=== PATIENT | female | born 1975 | race Caucasian/White ===

== ENCOUNTER 2019-07-11 22:52 | Emergency (ER) | payer OTHER, SELFPAY ==
[2019-07-11 22:53] VITALS: BP 165/107; PULSE 102; RESP 18; TEMP 35.5; O2SAT 96; BMI 43.0
--- NOTE | 2019-07-11 23:30 | ED.DCSUM_ITS ---
History of Present Illness Chief Complaint: Foreign Body Informant: Patient Narrative: Stated that when she was eating tonight around 6:30 PM she was swallowing steak and feels like it got stuck. She is having a burning sensation when she tries to swallow water. She had vomited up water. She is never had anything fully get stuck over the last 3 months though she is had difficulty eating steak and bread and meats. She is never had endoscopy. She felt fine before she was eating. Current severity is moderate. She is able to swallow her saliva. He is on no proton pump inhibitor Past Medical History - Allergies and Home Meds Allergies/Adverse Reactions: Allergies No Known Allergies Allergy (Verified 07/11/19 22:53) Primary Care Physician: Davey Lozano MD [Primary Care Provider] - Prior records reviewed: Yes Past Medical History: None Surgical History: noncontributory Lives: With Family Smoking Status: Never smoker Alcohol: None Drugs: None Review of Systems General: Denies: Chills, Fever, Sweats Eyes: Denies: Visual changes - bilaterally, Diplopia ENT: Denies: Rhinorrhea, Sore throat Cardiovascular: Reports: Chest pain - Secondary to steak sensation between her breast foreign body. Burning in nature. Denies: Palpitations Respiratory: Denies: Dyspnea, Cough, Dyspnea on exertion Gastrointestinal: Denies: Abdominal pain, Nausea, Vomiting, Diarrhea, Melena, Hematochezia Genitourinary: Denies: Dysuria, Hematuria, Frequency Musculoskeletal: Denies: Back pain, Extremity Pain Skin: Denies: Rash, Wounds Neurological: Denies: Headache, Weakness, Numbness Physical Exam Vital Signs/Narrative: Vital Signs Temp Pulse Resp BP Pulse Ox 07/11/19 22:53 95.9 F L 102 H 18 165/107 H 96 General: Well nourished, Well developed, No Acute Distress Head: Normocephalic, Atraumatic Eyes: Perrl, EOMI ENT: Moist mucous membranes, No rhinorrhea Neck: Supple, Nontender Cardiovascular: Regular rate, Regular rhythm, No murmurs Respiratory: No distress, CTA bilaterally, Chest nontender Abdomen: Soft, Nontender, Nondistended, Normal bowel sounds Back: Nontender, Normal Inspection Extremities: Nontender, No edema Skin: Normal color, No rash Neurological: Alert, Oriented x3, Cranial nerves II-XII grossly intact, Normal Strength, Normal Sensation Psychological: Normal affect, Normal Mood Diagnostic/Tx/Re-eval - Medical Decision Making Patient given a glass of water and drank the whole thing fast. She was able to get the foreign body to pass. On reevaluation she feels much better. She was able to drink again without problem. Given a GI cocktail as well as a proton pump inhibitor Protonix. At this time I feel she can follow-up as an outpatient and stick to a soft diet. She will need endoscopy. She will be placed on a proton pump inhibitor at home. ED Disposition - Plan for ED Patient: Disposition: Home or Assisted Living Diagnosis: Food impaction of esophagus Instructions: ED Foreign Body Esophageal Rslv Prescriptions: Omeprazole [Prilosec] 40 mg PO DAILY #30 cap Transmission Status: Pending to [facility]/pharmacy #[id number] Referrals: Davey Lozano MD [Primary Care Provider] - Branden Wellington MD [STAFF PHYSICIAN] -
[2019-07-11] MEDS: Mag Hydrox/Al Hydrox/Simeth 30 ML UDC PO (23:37)
[2019-07-11] MEDS: Pantoprazole Sodium 40 MG Tablet PO (23:38)
[2019-07-12 00:17] VITALS: BP 146/107; PULSE 97; RESP 16; O2SAT 97
== END 2019-07-12 00:18 | disposition home or self-care (01) ==
PROVIDERS: Emergency Provider Emergency Medicine; PCP Family Medicine
DX: T18.128A Food in esophagus causing other injury, initial encounter (principal)
CPT/HCPCS: 99283